=== PATIENT | female | born 1985 | race African-American/Black ===

== ENCOUNTER 2016-12-01 11:39 | Emergency (ER) | payer OTHER ==
[~2016-12-01] VITALS: Ht 170.2 cm; Wt 73.0 kg
[2016-12-01 11:42] VITALS: BP 135/97; PULSE 76; RESP 16; TEMP 99.8; O2SAT 100
--- NOTE | 2016-12-01 12:04 | PD ---
HPI Chief Complaint: Cold / Flu Symptoms Time Seen by Provider: 12:04 Travel History International Travel<30 days: No Contact w/Intl Traveler<30days: No Traveled to known affect area: No History of Present Illness HPI 31-year-old Afro-Indian female presents the emergency Department with fever, chills, bodyaches, and positive exposure to flu from roommate. Her roommate was diagnosed last evening. Patient denies productive cough, nausea or vomiting. She is worse today than she was yesterday. This is day 3 of her illness. She has no known drug allergies. [facility] Past Medical History Medical History: Denies Significant Hx Diminished Hearing: No Immunizations Current: Yes Tetanus Vaccination: < 5 Years Influenza Vaccination: No ?: Not LMP: NOW Past Surgical History Surgical History: No Previous Surgery Social History Alcohol Use: No Tobacco Use: Yes (OCC) Substance Use: No Allergies-Medications (Allergen,Severity, Reaction): Coded Allergies: No Known Allergies (Unverified , 12/01/16) Reported Meds & Prescriptions Reported Meds & Active Scripts Active No Active Prescriptions or Reported Medications Review of Systems Except as stated in HPI: all other systems reviewed are Neg General / Constitutional: Positive: Fever, Chills Eyes: No: Visual changes HENT: Positive: Headaches, Sore Throat, Rhinitis, Rhinorrhea, Congestion, No: Neck Stiffness, Neck Pain, Gingival Bleeding, Dental Difficulties, Ear Discharge , Earache Cardiovascular: No: Chest Pain or Discomfort Respiratory: Positive: Cough, No: Shortness of Breath, Wheezing, Sneezing Gastrointestinal: Positive: Loss of Appetite, No: Nausea, Vomiting, Diarrhea, Abdominal Pain Genitourinary: No: Dysuria Musculoskeletal: No: Pain Skin: No Rash Neurologic: No: Weakness Psychiatric: No: Depression Endocrine: No: Polydipsia Hematologic/Lymphatic: No: Easy Bruising Physical Exam Narrative GENERAL: Patient appears ill but not septic. SKIN: Warm and dry. Normal color. Normal turgor. HEAD: Atraumatic. Normocephalic. EYES: Pupils equal and round. No scleral icterus. No injection or drainage. ENT: No nasal bleeding and clear discharge. Mucous membranes pink and moist. Meacham clear. Airway is patent. TMs are normal bilaterally. NECK: Trachea midline. Supple nontender. CARDIOVASCULAR: Regular rate and rhythm. RESPIRATORY: No accessory muscle use. Clear to auscultation. Breath sounds equal bilaterally. MUSCULOSKELETAL: Extremities without clubbing, cyanosis, or edema. No obvious deformities. NEUROLOGICAL: Awake and alert. No obvious cranial nerve deficits. Motor grossly within normal limits. Five out of 5 muscle strength in the arms and legs. Normal speech. PSYCHIATRIC: Appropriate mood and affect; insight and judgment normal. Data Data Last Documented VS Vital Signs Date Time Temp Pulse Resp B/P Pulse Ox O2 Delivery O2 Flow Rate FiO2 12/01/16 11:52 100 Room Air 12/01/16 11:42 99.8 76 16 135/97 Orders Oseltamivir (Tamiflu) (12/01/16 12:15) [facility] Medical Decision Making Medical Screen Exam Complete: Yes Emergency Medical Condition: Yes Differential Diagnosis Fever. Upper respiratory infection. Influenza. Narrative Course Due to the patient's positive exposure to go ahead and treat her for influenza. Patient received first dose of Tamiflu 75 mg by mouth. Patient will continue Tamiflu twice a day 5 days. Patient should take Tylenol and ibuprofen and rest as needed for the next several days. Work note is given. Patient follow up with symptoms worsen in the next several days. Diagnosis Primary Impression: Influenza Referrals: [facility] Patient Instructions: General Instructions, H1N1 Influenza (ED) Departure Forms: Work Release Enter return to work date: December 01, 2016 Special Instructions: Patient has influenza. She should not work until she is fever free for 24 hours. Additional Instructions: Due to the patient's positive exposure to go ahead and treat her for influenza. Patient received first dose of Tamiflu 75 mg by mouth. Patient will continue Tamiflu twice a day 5 days. Patient should take Tylenol and ibuprofen and rest as needed for the next several days. Work note is given. Patient follow up with symptoms worsen in the next several days. Med/Other Pt SpecificInfo: Prescription(s) given Scripts No Active Prescriptions or Reported Meds Disposition: 01 DISCHARGE HOME Condition: Stable Marlon Angel December 01, 2016 12:04
[2016-12-01] MEDS ORDERED: OSELTAMIVIR PHOSPHATE 75 MG CAP PO ONE (12:15)
[2016-12-01] MEDS ORDERED: OSEL75 PO (12:21)
== END 2016-12-01 12:50 | disposition home or self-care (01) ==
LOC: PHEFT 11:39
DX: J11.1 Influenza due to unidentified influenza virus with other respiratory manifestations (principal)
CPT/HCPCS: 99283

== ENCOUNTER 2017-11-27 19:27 | Observation (INO) | payer OTHER ==
[~2017-11-27] VITALS: Ht 170.2 cm; Wt 75.4 kg
[~2017-11-27 19:27] MED LIST: OSEL75 PO
[2017-11-27 19:29] VITALS: BP 184/104; PULSE 80; RESP 16; TEMP 97.3; O2SAT 100
[2017-11-27 19:47] VITALS: BP 157/98; PULSE 77; RESP 18; O2SAT 100
[2017-11-27] MEDS ORDERED: SODIUM CHLORIDE 0.9% FLUSH 10 ML FLUSH IVF PRN (20:30)
[2017-11-27 20:47] VITALS: O2SAT 99
--- NOTE | 2017-11-27 20:52 | RADRPT ---
EXAM DATE/TIME: 11/27/2017 20:31 [facility] COMPARISON: No previous studies available for comparison. INDICATIONS : Palpitations. MEDICAL HISTORY : None. SURGICAL HISTORY : None. ENCOUNTER: Initial ACUITY: 2 days PAIN SCORE: 0/10 LOCATION: Bilateral chest FINDINGS: A single view of the chest demonstrates the lungs to be symmetrically aerated without evidence of mas s, infiltrate or effusion. The cardiomediastinal contours are unremarkable. Osseous structures are intact. CONCLUSION: No acute disease. Kj Valverde MD on November 27, 2017 at 20:50 Board Certified Radiologist. This report was verified electronically.
[2017-11-27 20:55] LABS: AUTOMATED NEUTROPHIL # 4.7 TH/MM3 (1.8-7.7); BASOPHIL # 0.1 TH/MM3 (0-0.2); BASOPHIL % 1.1 % (0.0-2.0); EOSINOPHIL # 0.3 TH/MM3 (0-0.4); EOSINOPHIL % 3.8 % (0.0-4.0); HEMATOCRIT 44.2 % (35.0-46.0); HEMOGLOBIN 14.7 GM/DL (11.6-15.3); LYMPHOCYTE # 2.3 TH/MM3 (1.0-4.8); MEAN CELL VOLUME 83.2 FL (80.0-100.0); MEAN CORPUSCULAR HEMOGLOBIN 27.7 PG (27.0-34.0); MEAN CORPUSCULAR HGB CONC 33.3 % (32.0-36.0); MEAN PLATELET VOLUME 8.3 FL (7.0-11.0); MONO % 5.1 % (0.0-8.0); MONOCYTE # 0.4 TH/MM3 (0-0.9); PLATELET COUNT 277 TH/MM3 (150-450); RED BLOOD COUNT 5.32 MIL/MM3 (4.00-5.30); RED CELL DISTRIBUTION WIDTH 13.2 % (11.6-17.2); WHITE BLOOD COUNT 7.8 TH/MM3 (4.0-11.0)
--- NOTE | 2017-11-27 20:55 | PD ---
HPI Chief Complaint: Dizziness Time Seen by Provider: 20:23 Travel History International Travel<30 days: No Contact w/Intl Traveler<30days: No Traveled to known affect area: No History of Present Illness HPI 32-year-old female presents to the emergency department for complaint of dizziness noted upon awakening yesterday morning with associated droopiness of her right eyelid. Patient denies any trauma or injury. Patient has no significant past medical history denies history of diabetes thyroid disease or hypertension. Patient's had mild headache but not sudden onset thunderclap or worst ever. Patient states she has no visual disturbance. Patient has no loss of vision and no decreased vision or peripheral vision loss. Patient does note at times double vision affecting only the right eye. Patient has had dizziness in the past but states this is a new dizziness feels off balance but has not had any focal upper or lower extremity numbness tingling or weakness or ataxia of gait. No altered mentation. No difficulty swallowing or speech. No facial droop. Due to persistent symptoms decided to come to the emergency room for evaluation. Patient takes no prescription medications and does not take contraceptives. Patient does not smoke cigarettes. Does have family history of hypertension. Patient denies pain, has had no recent febrile illness or respiratory illness. Patient denies any weakness. PFSH Past Medical History Medical History: Denies Significant Hx Diminished Hearing: No Immunizations Current: Yes Tetanus Vaccination: Unknown Influenza Vaccination: No ?: Not LMP: 10/13/17 Past Surgical History Surgical History: No Previous Surgery Social History Alcohol Use: No Tobacco Use: Yes (OCC) Substance Use: No Allergies-Medications (Allergen,Severity, Reaction): Coded Allergies: No Known Allergies (Unverified , 12/01/16) Reported Meds & Prescriptions Reported Meds & Active Scripts Active No Active Prescriptions or Reported Medications Review of Systems Except as stated in HPI: all other systems reviewed are Neg General / Constitutional: No: Fever, Chills Eyes: Positive: Diploplia, No: Blurred Vision, Photophobia, Foreign Body Sensation, Visual changes HENT: Positive: Lightheadedness, No: Headaches, Vertigo, Congestion, Neck Pain Cardiovascular: No: Chest Pain or Discomfort, Palpitations, Diaphoresis, Syncope, Dyspnea on exertion Respiratory: No: Cough, Shortness of Breath Gastrointestinal: No: Nausea, Vomiting, Abdominal Pain Genitourinary: No: Dysuria, Flank Pain Musculoskeletal: No: Myalgias, Arthralgias Skin: No Rash Neurologic: Positive: Dizziness, No: Weakness, Syncope, Focal Abnormalities, Coordination Problem, Ataxia, Headache, Change in Mentation, Slurred Speech, Paresthesia, Sensory Disturbance Psychiatric: No: Anxiety Endocrine: No: Heat Intolerance, Cold Intolerance Hematologic/Lymphatic: No: Easy Bruising Physical Exam Narrative GENERAL: Well-developed well-nourished female no acute distress no respiratory distress; GCS 15 SKIN: Warm and dry. HEAD: Atraumatic. Normocephalic. EYES: Pupils equal and round and reactive to light. No scleral icterus. No injection or drainage. Extraocular muscles intact. Mild right upper lid drooping. ENT: No nasal bleeding or discharge. Mucous membranes pink and moist. NECK: Trachea midline. No JVD. CARDIOVASCULAR: Regular rate and rhythm. RESPIRATORY: No accessory muscle use. Clear to auscultation. Breath sounds equal bilaterally. GASTROINTESTINAL: Abdomen soft, non-tender, nondistended. Hepatic and splenic margins not palpable. MUSCULOSKELETAL: Extremities without clubbing, cyanosis, or edema. No obvious deformities. NEUROLOGICAL: Awake and alert. No obvious cranial nerve deficits; no facial droop mild right upper lid blepharoptosis. Motor grossly within normal limits. Five out of 5 muscle strength in the arms and legs. No limb ataxia. No pronator drift. DTRs 2+ and equal bilateral upper extremities and lower extremities. No clonus. Sensory exam intact as tested. Normal speech. PSYCHIATRIC: Appropriate mood and affect; insight and judgment normal. Data Data Last Documented VS Vital Signs Date Time Temp Pulse Resp B/P (MAP) Pulse Ox O2 Delivery O2 Flow Rate FiO2 11/28/17 00:53 70 18 133/74 (93) 99 Room Air 11/27/17 19:29 97.3 Orders Orders Electrocardiogram (11/27/17 20:23) Complete Blood Count With Diff (11/27/17 20:23) Comprehensive Metabolic Panel (11/27/17 20:23) Magnesium (Mg) (11/27/17 20:23) Ckmb (Isoenzyme) Profile (11/27/17 20:23) Troponin I (11/27/17 20:23) Act Partial Throm Time (Ptt) (11/27/17 20:23) Prothrombin Time / Inr (Pt) (11/27/17 20:23) Urinalysis - C+S If Indicated (11/27/17 20:23) Chest, Single Ap (11/27/17 20:23) Ct Brain W/O Iv Contrast(Rout) (11/27/17 20:23) Ecg Monitoring (11/27/17 20:23) Iv Access Insert/Monitor (11/27/17 20:23) Oximetry (11/27/17 20:23) Sodium Chloride 0.9% Flush (Ns Flush) (11/27/17 20:30) Ed Urine Pregnancytest Poc (11/27/17 20:23) Thyroid Stimulating Hormone (11/27/17 21:07) CKMB (11/27/17 20:27) CKMB% (11/27/17 20:27) Westergren Sedimentation Rate (11/27/17 23:11) C-Reactive Protein (Crp) (11/27/17 23:11) Mra Carotids W Contrast (11/28/17 ) Mri Brain W/O Contrast (11/28/17 ) Mra Brain W/O Contrast (Cow) (11/28/17 ) Gadodiamide Pf Inj (Omniscan Pf Inj) (11/28/17 00:51) Admit Order (Ed Use Only) (11/28/17 ) Masseur/Masseuse / Telemetry ROLDAN.Q8H (11/28/17 02:16) Activity Oob With Assistance (11/28/17 02:16) Notify Dr: Other (11/28/17 02:16) Consult Neurology (11/28/17 ) Place In Observation (11/28/17 ) Vital Signs (Adult) Q4H (11/28/17 02:16) Activity Oob Ad Rachel (11/28/17 02:16) Intake + Output ROLDAN.QSHIFT (11/28/17 02:16) Diet Regular Basic (11/28/17 Breakfast) Sodium Chloride 0.9% Flush (Ns Flush) (11/28/17 02:30) Sodium Chloride 0.9% Flush (Ns Flush) (11/28/17 09:00) Ondansetron Inj (Zofran Inj) (11/28/17 02:30) Comprehensive Metabolic Panel (11/29/17 06:00) Complete Blood Count With Diff (11/29/17 06:00) Scd Bilateral/Knee High ROLDAN.BID (11/28/17 02:16) Polo Bilateral/Knee High ROLDAN.QSHIFT (11/28/17 02:17) Acetaminophen (Tylenol) (11/28/17 02:30) Acetamin-Hydrocod 325-5 Mg (Davey 5-325 (11/28/17 02:30) Acetamin-Hydrocod 325-10 Mg (Davey 10-32 (11/28/17 02:30) Docusate Sodium-Senna (Martha-Colace) (11/28/17 09:00) Magnesium Hydroxide Liq (Milk Of Magnesi (11/28/17 02:30) Sennosides (Senokot) (11/28/17 02:30) Bisacodyl Supp (Dulcolax Supp) (11/28/17 02:30) Lactulose Liq (Lactulose Liq) (11/28/17 02:30) Labs Laboratory Tests Test 11/27/17 20:27 11/27/17 21:12 11/27/17 21:25 11/27/17 23:21 White Blood Count 7.8 TH/MM3 Red Blood Count 5.32 MIL/MM3 Hemoglobin 14.7 GM/DL Hematocrit 44.2 % Mean Corpuscular Volume 83.2 FL Mean Corpuscular Hemoglobin 27.7 PG Mean Corpuscular Hemoglobin Concent 33.3 % Red Cell Distribution Width 13.2 % Platelet Count 277 TH/MM3 Mean Platelet Volume 8.3 FL Neutrophils (%) (Auto) 60.0 % Lymphocytes (%) (Auto) 30.0 % Monocytes (%) (Auto) 5.1 % Eosinophils (%) (Auto) 3.8 % Basophils (%) (Auto) 1.1 % Neutrophils # (Auto) 4.7 TH/MM3 Lymphocytes # (Auto) 2.3 TH/MM3 Monocytes # (Auto) 0.4 TH/MM3 Eosinophils # (Auto) 0.3 TH/MM3 Basophils # (Auto) 0.1 TH/MM3 CBC Comment DIFF FINAL Differential Comment Prothrombin Time 10.0 SEC Prothromb Time International Ratio 1.0 RATIO Activated Partial Thromboplast Time 30.6 SEC Blood Urea Nitrogen 8 MG/DL Creatinine 0.67 MG/DL Random Glucose 89 MG/DL Total Protein 7.6 GM/DL Albumin 3.5 GM/DL Calcium Level 8.9 MG/DL Magnesium Level 2.0 MG/DL Alkaline Phosphatase 80 U/L Aspartate Amino Transf (AST/SGOT) 17 U/L Alanine Aminotransferase (ALT/SGPT) 17 U/L Total Bilirubin 0.3 MG/DL Sodium Level 137 MEQ/L Potassium Level 3.4 MEQ/L Chloride Level 107 MEQ/L Carbon Dioxide Level 25.0 MEQ/L Anion Gap 5 MEQ/L Estimat Glomerular Filtration Rate 125 ML/MIN Total Creatine Kinase 147 U/L Creatine Kinase MB LESS THAN 0.5 NG/ML Troponin I LESS THAN 0.02 NG/ML Thyroid Stimulating Hormone 3rd Gen 2.460 uIU/ML Urine Color YELLOW Urine Turbidity CLEAR Urine pH 6.0 Urine Specific [place] LESS/EQUAL 1.005 Urine Protein NEG mg/dL Urine Glucose (UA) NEG mg/dL Urine Ketones NEG mg/dL Urine Occult Blood NEG Urine Nitrite NEG Urine Bilirubin NEG Urine Urobilinogen 0.2 MG/DL Urine Leukocyte Esterase NEG Urine WBC 0-2 /hpf Urine Squamous Epithelial Cells 0-5 /hpf Microscopic Urinalysis Comment CULT NOT INDICATED Erythrocyte Sedimentation Rate 1 mm/hr C-Reactive Protein 0.86 MG/DL [facility] Medical Decision Making Medical Screen Exam Complete: Yes Emergency Medical Condition: Yes Medical Record Reviewed: Yes Interpretation(s) EKG: Normal sinus rhythm rate 70 normal axis and intervals no acute ST elevation injury pattern or ectopy noted poc HCG: negative CBC & BMP Diagram 11/27/17 20:27 Total Protein 7.6, Albumin 3.5, Calcium Level 8.9, Magnesium Level 2.0, Alkaline Phosphatase 80, Aspartate Amino Transf (AST/SGOT) 17, Alanine Aminotransferase (ALT/SGPT) 17, Total Bilirubin 0.3 Last Impressions Neck Magnetic Resonance Angiography 11/28/17 0000 Signed Impressions: Service Date/Time: Tuesday, November 28, 2017 00:17 - CONCLUSION: Normal examination. Lazaro Gonzalez MD Head Magnetic Resonance Angiography 11/28/17 0000 Signed Impressions: Service Date/Time: Tuesday, November 28, 2017 00:17 - CONCLUSION: Normal examination. Lazaro Gonzalez MD Brain MRI 11/28/17 0000 Signed Impressions: Service Date/Time: Tuesday, November 28, 2017 00:17 - CONCLUSION: Normal examination. Lazaro Gonzalez MD Head CT 11/27/172022 Signed Impressions: Service Date/Time: Monday, November 27, 2017 22:18 - CONCLUSION: 1. No acute intracranial abnormalities. Kj Valverde MD Chest X-Ray 11/27/172022 Signed Impressions: Service Date/Time: Monday, November 27, 2017 20:31 - CONCLUSION: No acute disease. Kj Valverde MD Vital Signs Date Time Temp Pulse Resp B/P (MAP) Pulse Ox O2 Delivery O2 Flow Rate FiO2 11/28/17 00:53 70 18 133/74 (93) 99 Room Air 11/27/17 22:35 74 18 164/92 (116) 99 Room Air 11/27/17 21:15 70 18 163/95 (117) 100 Room Air 11/27/17 20:47 99 11/27/17 19:47 Room Air 11/27/17 19:47 77 18 157/98 (117) 100 Room Air 11/27/17 19:29 97.3 80 16 184/104 (130) 100 TSH: 2.460, wnl c-rp: 0.86, mildly elevated esr: 1, not elevated Differential Diagnosis ptosis, blepharoptosis, 3rd nn palsy, cva, tia, atypical morejon's, mass, thyroid dysfunction, trauma, MS, cerebral aneurysm, also to consider myasthenia gravis, unlikely Ida's Narrative Course Patient placed on engine monitor with continuous pulse oximetry IV access obtained specimens collected and sent for resulting EKG ordered which is sinus rhythm without ectopy Lab values grossly in normal range CT brain noncontrast without abnormality Patient's case discussed with on-call neurology recommends MRI of the brain without contrast MRA of the brain without contrast and MRA of the neck with contrast; we will see in consultation in the a.m. unless abnormality identified on imaging Imaging studies are found to be normal without abnormality Patient informed of lab results imaging results and plan for observation Patient's case discussed with on-call medicine for observation Physician Communication Physician Communication discussed with Dr Brewer ---MRI MRA brain MRA neck; discussed with [facility] MD Dr Lancaster Diagnosis Primary Impression: Dizziness Additional Impression: Diplopia Admitting Information Admitting Physician Requests: Observation Scripts No Active Prescriptions or Reported Meds Lou Manuel MD November 27, 2017 20:55
[2017-11-27 21:15] VITALS: BP 163/95; PULSE 70; RESP 18; O2SAT 100
[2017-11-27 21:47] LABS: BILIRUBIN, URINE NEG (NEG); BLOOD, URINE NEG (NEG); GLUCOSE,URINE NEG (NEG); KETONE, URINE NEG (NEG); NITRITE,URINE NEG (NEG); URINE COLOR YELLOW (YELLW/STRAW); URINE LEUKOCYTE ESTERASE NEG (NEG)
[2017-11-27 21:54] LABS: CHLORIDE 107 MEQ/L (98-107); SODIUM (NA) 137 MEQ/L (136-145)
[2017-11-27 21:57] LABS: CALCIUM 8.9 MG/DL (8.5-10.1)
[2017-11-27 21:58] LABS: ALBUMIN 3.5 GM/DL (3.4-5.0); BLOOD UREA NITROGEN 8 MG/DL (7-18); GLUCOSE,RANDOM 89 MG/DL (74-106)
[2017-11-27 22:01] LABS: ALT (GPT) 17 U/L (10-53); AST (GOT) 17 U/L (15-37); CREATININE 0.67 MG/DL (0.50-1.00); GLOMERULAR FILTRATION RATE 125 ML/MIN (>89)
[2017-11-27 22:02] LABS: TOTAL BILIRUBIN ADULT 0.3 MG/DL (0.2-1.0)
[2017-11-27 22:02] LABS: SQUAMOUS EPITHELIAL CELL URINE 0-5 /hpf (0-5); WBC, URINE 0-2 /hpf (0-5)
[2017-11-27 22:03] LABS: TOTAL PROTEIN 7.6 GM/DL (6.4-8.2)
[2017-11-27 22:04] LABS: ALKALINE PHOSPHATASE 80 U/L (45-117)
[2017-11-27 22:06] LABS: TROPONIN I LESS THAN 0.02 NG/ML (0.02-0.05)
[2017-11-27 22:35] VITALS: BP 164/92; PULSE 74; RESP 18; O2SAT 99
--- NOTE | 2017-11-27 22:46 | RADRPT ---
EXAM DATE/TIME: 11/27/2017 22:18 [facility] COMPARISON: No previous studies available for comparison. INDICATIONS : Dizziness. RADIATION DOSE: 49.63 CTDIvol (mGy) MEDICAL HISTORY : None SURGICAL HISTORY : None. ENCOUNTER: Initial ACUITY: 1 day PAIN SCALE: 0/10 LOCATION: cranial TECHNIQUE: Multiple contiguous axial images were obtained of the head. Using automated exposure control and adj ustment of the mA and/or kV according to patient size, radiation dose was kept as low as reasonably a chievable to obtain optimal diagnostic quality images. DICOM format image data is available electro nically for review and comparison. FINDINGS: CEREBRUM: The ventricles are normal for age. No evidence of midline shift, mass lesion, hemorrhage or acute in farction. No extra-axial fluid collections are seen. POSTERIOR FOSSA: The cerebellum and brainstem are intact. The 4th ventricle is midline. The cerebellopontine angle i s unremarkable. EXTRACRANIAL: The visualized portion of the orbits is intact. SKULL: The calvaria is intact. No evidence of skull fracture. CONCLUSION: 1. No acute intracranial abnormalities. Kj Valverde MD on November 27, 2017 at 22:43 Board Certified Radiologist. This report was verified electronically.
[2017-11-28] VITALS (8 sets, daily range): BP systolic 133–154; BP diastolic 74–97; PULSE 66–81; RESP 17–20; TEMP 97.8–99.3; O2SAT 98–100
--- NOTE | 2017-11-28 00:49 | RADRPT ---
EXAM DATE/TIME: 11/28/2017 00:17 [facility] COMPARISON: No previous studies available for comparison. INDICATIONS : Dizziness. Double vision with right eyelid drooping. MEDICAL HISTORY : None. SURGICAL HISTORY : None. ENCOUNTER: Initial ACUITY: 2 day PAIN SCORE: 0/10 LOCATION: cranial TECHNIQUE: Multiplanar, multisequence MRI of the brain was performed without contrast. FINDINGS: CEREBRUM: The ventricles are normal for age. No evidence of midline shift, mass lesion, hemorrhage or acute in farction. No extraaxial fluid collections are seen. The pituitary gland and suprasellar cistern are normal in configuration. WHITE MATTER: No significant signal abnormalities are seen in the white matter. POSTERIOR FOSSA: The cerebellum and brainstem are intact. The 4th ventricle is midline. The cerebellopontine angle is unremarkable. The cerebellar tonsils are normal in position. DIFFUSION IMAGING: No focal areas of restricted diffusion are seen. No evidence of acute infarction. EXTRACRANIAL: The visualized portions of the orbits and paranasal sinuses are unremarkable. CONCLUSION: Normal examination. Lazaro Gonzalez MD on November 28, 2017 at 0:44 Board Certified Radiologist. This report was verified electronically.
--- NOTE | 2017-11-28 00:50 | RADRPT ---
EXAM DATE/TIME: 11/28/2017 00:17 [facility] COMPARISON: No previous studies available for comparison. INDICATIONS : Dizziness. Double vision with right eyelid drooping. MEDICAL HISTORY : None. SURGICAL HISTORY : None. ENCOUNTER: Initial ACUITY: 2 day PAIN SCORE: 0/10 LOCATION: cranial Please note a normal MRA of the brain does not entirely exclude the possibility of a small aneurysm, nor the possibility of distal intracranial vessel disease. TECHNIQUE: 3D time of flight MRA was performed. Source images, multiplanar STS MIP, and 3D volume MIP reconstru ctions were reviewed. FINDINGS: There is excellent visualization of the major intracranial arteries out to the second-order branch ve ssels. There is no evidence for aneurysm, vessel truncation or stenosis, and no evidence for vascula r malformation. CONCLUSION: Normal examination. Lazaro Gonzalez MD on November 28, 2017 at 0:47 Board Certified Radiologist. This report was verified electronically.
[2017-11-28] MEDS ORDERED: GADODIAMIDE PF 287 MG/ML 20 ML VIAL (for RAD MRI) IVCONTRAST ONE ×2 (00:51→16:50)
--- NOTE | 2017-11-28 01:13 | RADRPT ---
EXAM DATE/TIME: 11/28/2017 00:17 [facility] COMPARISON: No previous studies available for comparison. INDICATIONS : Dizziness. Double vision with right eyelid drooping. CONTRAST: 20 cc Omniscan (gadodiamide) IV MEDICAL HISTORY : None. SURGICAL HISTORY : None. ENCOUNTER: Initial ACUITY: 2 day PAIN SCORE: 0/10 LOCATION: cranial Percent stenosis is calculated using the diameter of the stenotic region over the diameter of the nor mal distal internal carotid artery. TECHNIQUE: Bolus infused MRA of the extracranial circulation was performed using a neurovascular coil. Post pro cessing was performed including rotating subvolume maximum intensity projections of each carotid lucía ry, rotating full volume maximum intensity projections of both carotid arteries, sagittal and coronal sliding thin slab reformations of each carotid artery, and left oblique sliding thin slab reformatio n through the aortic arch to include the origin of the arch branch vessels. FINDINGS: AORTIC ARCH: There is a three vessel origin of the great vessels from the aorta. No evidence of ostial narrowing. RIGHT CAROTID: The common carotid artery is intact. The carotid bulb has a normal configuration without ulceration or narrowing. The internal carotid artery lumen is smooth without stenosis. The external carotid ar haraln is intact. LEFT CAROTID: The common carotid artery is intact. The carotid bulb has a normal configuration without ulceration or narrowing. The internal carotid artery lumen is smooth without stenosis. The external carotid ar harlan is intact. VERTEBRALS: The vertebral arteries have a symmetric diameter. No stenotic lesions are seen. CONCLUSION: Normal examination. Lazaro Gonzalez MD on November 28, 2017 at 1:11 Board Certified Radiologist. This report was verified electronically.
[2017-11-28] MEDS ORDERED: ACETAMINOPHEN 325 MG TAB PO PRN (02:30)
[2017-11-28] MEDS ORDERED: BISACODYL 10 MG SUPP RECTAL PRN (02:30)
[2017-11-28] MEDS ORDERED: MAGNESIUM HYDROXIDE SUSP 30 ML CUP PO PRN (02:30)
[2017-11-28] MEDS ORDERED: LACTULOSE SYRUP 20 GM/30 ML CUP PO PRN (02:30)
[2017-11-28] MEDS ORDERED: SENNOSIDES 8.6 MG TAB PO PRN (02:30)
[2017-11-28] MEDS ORDERED: ACETAMINOPHEN/HYDROcodone 325 MG/5 MG TAB PO PRN (02:30)
[2017-11-28] MEDS ORDERED: SODIUM CHLORIDE 0.9% FLUSH 10 ML FLUSH IV FLUSH PRN (02:30)
[2017-11-28] MEDS ORDERED: ACETAMINOPHEN/HYDROcodone 325 MG/10 MG TAB PO PRN (02:30)
[2017-11-28] MEDS ORDERED: ONDANSETRON HCL 4 MG/2 ML VIAL IVP PRN (02:30)
--- NOTE | 2017-11-28 07:24 | HHI.HP ---
[facility] Service [facility] Primary Care Physician No Primary Care Physician Admission Diagnosis dizziness w/ diplopia Diagnoses: (1) Acquired blepharoptosis of right eyelid Travel History International Travel<30 Days: No Contact w/Intl Traveler <30 Da: No Traveled to Known Affected Are: No History of Present Illness 32 year old AA female with no significant medical history presented to the ER with right eyelid drooping. She reports on the morning of 11/26 she woke up and noticed her right upper lid was drooping and if she didn't tilt her head up she would have double vision out of that eye. The amount of drooping doesn't fluctuate throughout the day. She denies any trauma, recent illness, vaccinations, insect bites, travel, or injury. She denies headache, loss of vision, paresthesias, motor weakness, slurred speech, gait abnormalities, dysphagia, or difficulty thinking. She states she was dizzy for a couple hours about a month or two ago but it resolved spontaneously. Otherwise she has never had similar symptoms in the past. Her mother was scared she was having a stroke prompting her to seek medical attention. When inquired, the patient does endorse some dry eyes the past month which she has been using lubricating eye drops for. She denies dry mouth, rash, or fatigue. She isn't currently sexually active but has been in the past with women. She denies history of STDs. She was imprisoned years ago at which time she was treated for exposure to TB but states she never had active TB. She denies any personal or family history of lupus. She does not wear contacts. Review of Systems Constitutional: COMPLAINS OF: Dizziness, DENIES: Fatigue, Fever, Chills Eyes: COMPLAINS OF: Diplopia, DENIES: Blurred vision, Eye inflammation, Eye pain, Vision loss, Photosensitivity Ears, nose, mouth, throat: DENIES: Throat pain, Running Nose, Sinus Pain Respiratory: DENIES: Cough, Wheezing, Shortness of breath Cardiovascular: DENIES: Chest pain, Palpitations, Syncope Gastrointestinal: DENIES: Abdominal pain, Black stools, Bloody stools, Diarrhea , Nausea, Vomiting Genitourinary: DENIES: Dysuria Musculoskeletal: DENIES: Joint pain, Muscle aches Integumentary: DENIES: Rash Hematologic/lymphatic: DENIES: Bruising Neurologic: DENIES: Headache, Localized weakness, Paresthesias, Seizures Psychiatric: DENIES: Anxiety Past Family Social History Past Medical History Treated for exposure to TB when in longterm years ago Past Surgical History None Reported Medications No Active Prescriptions or Reported Medications Allergies: Coded Allergies: No Known Allergies (Unverified , 12/01/16) Active Ordered Medications Acetaminophen (Tylenol) 650 mg Q6H PRN PO; Start 11/28/17 at 02:30 Acetaminophen/ Hydrocodone Bitart ([place] 5-325 Mg) 1 tab Q4H PRN PO; Start 11/28/17 at 02:30 Acetaminophen/ Hydrocodone Bitart ([place] 10-325 Mg) 1 tab Q4H PRN PO; Start 11/28/17 at 02:30 Bisacodyl (Dulcolax Supp) 10 mg DAILY PRN RECTAL; Start 11/28/17 at 02:30 Gadodiamide (Omniscan Pf Inj) 20 ml STK-MED ONCE IVCONTRAST Last administered on 11/28/17at 00:51; Admin Dose 20 ML; Start 11/28/17 at 00:51; Stop 11/28/17 at 00: 52; Status DC Lactulose (Lactulose Liq) 30 ml DAILY PRN PO; Start 11/28/17 at 02:30 Magnesium Hydroxide (Milk Of Magnesia Liq) 30 ml Q12H PRN PO; Start 11/28/17 at 02:30 Ondansetron HCl (Zofran Inj) 4 mg Q6H PRN IVP; Start 11/28/17 at 02:30 Senna/Docusate Sodium ([place]artha-Colace) 1 tab BID PO; Start 11/28/17 at 09:00 Sennosides (Senokot) 17.2 mg Q12H PRN PO; Start 11/28/17 at 02:30 Sodium Chloride (NS Flush) 2 ml BID IV FLUSH; Start 11/28/17 at 09:00 Sodium Chloride (NS Flush) 2 ml UNSCH PRN IV FLUSH; Start 11/28/17 at 02:30 Sodium Chloride (NS Flush) 2 ml UNSCH PRN IVF; Start 11/27/17 at 20:30 Family History Hypertension Social History Lives with mother EtOH: socially Tobacco: denies Illicit drugs: occasional marijuana, never IVDU Physical Exam Vital Signs Vital Signs Date Time Temp Pulse Resp B/P (MAP) Pulse Ox O2 Delivery O2 Flow Rate FiO2 11/28/17 05:33 68 18 151/93 (112) 99 Room Air 11/28/17 03:00 72 18 145/78 (100) 99 Room Air 11/28/17 00:53 70 18 133/74 (93) 99 Room Air 11/27/17 22:35 74 18 164/92 (116) 99 Room Air 11/27/17 21:15 70 18 163/95 (117) 100 Room Air 11/27/17 20:47 99 11/27/17 19:47 Room Air 11/27/17 19:47 77 18 157/98 (117) 100 Room Air 11/27/17 19:29 97.3 80 16 184/104 (130) 100 Physical Exam GENERAL: Well-nourished, well-developed female laying comfortably in bed in no apparent distress. Has her chin up to look through lowered palpebral fissure. SKIN: No rashes, ecchymoses or lesions. Cool and dry. Multiple tattoos over extremities. HEENT: Atraumatic. Normocephalic. No temporal or scalp tenderness. Pupils equal round and reactive. Extraocular motions intact. No scleral icterus. No injection or drainage. Nose without bleeding, purulent drainage or septal hematoma. Throat without erythema, tonsillar hypertrophy or exudate. Uvula midline. Airway patent. NECK: Trachea midline. No JVD or lymphadenopathy. Supple, nontender, no meningeal signs. CARDIOVASCULAR: Regular rate and rhythm without murmurs, gallops, or rubs. RESPIRATORY: Clear to auscultation. Breath sounds equal bilaterally. No wheezes , rales, or rhonchi. GASTROINTESTINAL: Abdomen soft, non-tender, nondistended. No hepato-splenomegaly , or palpable masses. No guarding. MUSCULOSKELETAL: Extremities without clubbing, cyanosis, or edema. No joint tenderness, effusion, or edema noted. No calf tenderness. Negative Homans sign bilaterally. NEUROLOGICAL: Awake and alert. Cranial nerves II through XII intact. R upper eyelid ptosis. Smile appears symmetric though smile creases slightly different ( 2 on right, 1 on left). Motor and sensory grossly within normal limits. Five out of 5 muscle strength in all muscle groups. Normal speech. Rapid alternating movements and heel-lambert testing within normal limits. No pronator drift. Laboratory Laboratory Tests Test 11/27/17 20:27 11/27/17 21:12 11/27/17 21:25 11/27/17 23:21 White Blood Count 7.8 Red Blood Count 5.32 Hemoglobin 14.7 Hematocrit 44.2 Mean Corpuscular Volume 83.2 Mean Corpuscular Hemoglobin 27.7 Mean Corpuscular Hemoglobin Concent 33.3 Red Cell Distribution Width 13.2 Platelet Count 277 Mean Platelet Volume 8.3 Neutrophils (%) (Auto) 60.0 Lymphocytes (%) (Auto) 30.0 Monocytes (%) (Auto) 5.1 Eosinophils (%) (Auto) 3.8 Basophils (%) (Auto) 1.1 Neutrophils # (Auto) 4.7 Lymphocytes # (Auto) 2.3 Monocytes # (Auto) 0.4 Eosinophils # (Auto) 0.3 Basophils # (Auto) 0.1 CBC Comment DIFF FINAL Differential Comment Prothrombin Time 10.0 Prothromb Time International Ratio 1.0 Activated Partial Thromboplast Time 30.6 Blood Urea Nitrogen 8 Creatinine 0.67 Random Glucose 89 Total Protein 7.6 Albumin 3.5 Calcium Level 8.9 Magnesium Level 2.0 Alkaline Phosphatase 80 Aspartate Amino Transf (AST/SGOT) 17 Alanine Aminotransferase (ALT/SGPT) 17 Total Bilirubin 0.3 Sodium Level 137 Potassium Level 3.4 Chloride Level 107 Carbon Dioxide Level 25.0 Anion Gap 5 Estimat Glomerular Filtration Rate 125 Total Creatine Kinase 147 Creatine Kinase MB LESS THAN 0.5 Troponin I LESS THAN 0.02 Thyroid Stimulating Hormone 3rd Gen 2.460 Urine Color YELLOW Urine Turbidity CLEAR Urine pH 6.0 Urine Specific [place] LESS/EQUAL 1.005 Urine Protein NEG Urine Glucose (UA) NEG Urine Ketones NEG Urine Occult Blood NEG Urine Nitrite NEG Urine Bilirubin NEG Urine Urobilinogen 0.2 Urine Leukocyte Esterase NEG Urine WBC 0-2 Urine Squamous Epithelial Cells 0-5 Microscopic Urinalysis Comment CULT NOT INDICATED Erythrocyte Sedimentation Rate 1 C-Reactive Protein 0.86 Result Diagram: 11/27/17202611/27/172026 Imaging Neck Magnetic Resonance Angiography 11/28/17 Signed Impressions: Service Date/Time: Tuesday, November 28, 2017 00:17 - CONCLUSION: Normal examination. Lazaro Gonzalez MD Head Magnetic Resonance Angiography 11/28/17 Signed Impressions: Service Date/Time: Tuesday, November 28, 2017 00:17 - CONCLUSION: Normal examination. Lazaro Gonzalez MD Brain MRI 11/28/17 Signed Impressions: Service Date/Time: Tuesday, November 28, 2017 00:17 - CONCLUSION: Normal examination. Lazaro Gonzalez MD Head CT 11/27/172022 Signed Impressions: Service Date/Time: Monday, November 27, 2017 22:18 - CONCLUSION: 1. No acute intracranial abnormalities. Kj Valverde MD Chest X-Ray 11/27/172022 Signed Impressions: Service Date/Time: Monday, November 27, 2017 20:31 - CONCLUSION: No acute disease. Kj Valverde MD Caprini VTE Risk Assessment Caprini VTE Risk Assessment: No/Low Risk (score <= 1) Caprini Risk Assessment Model Point Value = 1 Point Value = 2 Point Value = 3 Point Value = 5 Age 41-60 Minor surgery BMI > 25 kg/m2 Swollen legs Varicose veins or History of unexplained or recurrent spontaneous Oral contraceptives or hormone replacement Sepsis (< 1 month) Serious lung disease, including pneumonia (< 1 month) Abnormal pulmonary function Acute myocardial infarction Congestive heart failure (< 1 month) History of inflammatory bowel disease Medical patient at bed rest Age 61-74 Arthroscopic surgery Major open surgery (> 45 min) Laparoscopic surgery (> 45 min) Malignancy Confined to bed (> 72 hours) Immobilizing plaster cast Central venous access Age >= 75 History of VTE Family history of VTE Factor V Leiden Prothrombin [id number] Lupus anticoagulant Anticardiolipin antibodies Elevated serum homocysteine Heparin-induced thrombocytopenia Other congenital or acquired thrombophilia Stroke (< 1 month) Elective arthroplasty Hip, pelvis, or leg fracture Acute spinal cord injury (< 1 month) Prophylaxis Regimen Total Risk Factor Score Risk Level Prophylaxis Regimen 0-1 Low Early ambulation 2 Moderate Order ONE of the following: *Sequential Compression Device (SCD) *Heparin 5000 units SQ BID 3-4 Higher Order ONE of the following medications: *Heparin 5000 units SQ TID *Enoxaparin/Lovenox 40 mg SQ daily (WT < 150 kg, CrCl > 30 mL/min) *Enoxaparin/Lovenox 30 mg SQ daily (WT < 150 kg, CrCl > 10-29 mL/min) *Enoxaparin/Lovenox 30 mg SQ BID (WT < 150 kg, CrCl > 30 mL/min) AND/OR *Sequential Compression Device (SCD) 5 or more Highest Order ONE of the following medications: *Heparin 5000 units SQ TID (Preferred with Epidurals) *Enoxaparin/Lovenox 40 mg SQ daily (WT < 150 kg, CrCl > 30 mL/min) *Enoxaparin/Lovenox 30 mg SQ daily (WT < 150 kg, CrCl > 10-29 mL/min) *Enoxaparin/Lovenox 30 mg SQ BID (WT < 150 kg, CrCl > 30 mL/min) AND *Sequential Compression Device (SCD) Assessment and Plan Problem List: (1) Acquired blepharoptosis of right eyelid ICD Code: H02.401 - Unspecified ptosis of right eyelid Assessment and Plan 32 year old female with no known medical history presenting with R eyelid ptosis. 1. R blepharoptosis with associated diplopia - DDx: third nerve palsy, MG, Ida's, Coley's palsy - CBC, BMP, coags, U/A unremarkable - Troponin negative and EKG NSR without ST changes - All cranial studies have been negative so far including MRI, MRA, and neck MRA - TSH, ESR, CRP WNL - Check RPR and UHEY - Neuro consulted for further eval - Will need ophtho f/u FEN: - Tolerating PO - Potassium mildly low otherwise lytes WNL - Regular diet DVT prophylaxis: Low risk and ambulatory Disposition: if cleared by neuro can d/c home today w/ follow-up to ophthalmology Code Status FULL Discussed Condition With Patient and her mother Katherine Curry MD November 28, 2017 07:24
[2017-11-28] MEDS: DOCUSATE SODIUM 50 MG/SENNA 8.6 MG TAB PO SCH ×2 (09:00→20:39)
[2017-11-28] MEDS: SODIUM CHLORIDE 0.9% FLUSH 10 ML FLUSH IV FLUSH SCH ×2 (09:09→20:39)
--- NOTE | 2017-11-28 12:29 | MB ---
cc: Blu Brewer MD DATE: 11/28/2017 HISTORY OF PRESENT ILLNESS: This is a 32-year-old right-handed woman without any past medical history. She says a few months ago she felt dizzy, but otherwise has not had any trouble swallowing or seeing or double vision, and day she woke up, she had a ptosis in the right eye and some double vision whenever she looks around except if he looks downward. No trouble swallowing. No fatigue. Otherwise, has been not ill. No headache, chest pain or fevers or earaches or hearing loss, or weakness in her arms or legs. She feels dizzy, but no vertigo. REVIEW OF SYSTEMS: Denies any hypertension, diabetes, hypercholesterolemia, VA, CABG, cardiac arrhythmia; renal, hepatic or pulmonary disease; thyroid disease, lupus, ulcer, cancer, seizure, or stroke. SOCIAL HISTORY: Nonsmoker. Occasionally has a drink. Lives with her mother. 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 No insurance at this time. She occasionally smokes marijuana. She denied any drug use, however. FAMILY HISTORY: Negative for cancer, seizures or stroke. ALLERGIES: NO KNOWN DRUG ALLERGIES. MEDICATIONS: None. PAST MEDICAL HISTORY: No recent illness. PHYSICAL EXAMINATION: VITAL SIGNS: Afebrile, heart rate 66, respiration 17, blood pressure 144/95. NECK: There were no carotid or vertebral bruits. HEART: Regular rhythm. I did not detect a murmur. HEENT: There was no ocular bruit on the right. Hearing was intact to finger rub on the right. The pupils are equal. Visual saavedra are full. There is no scatoma on the right. Extraocular movements are intact. There was no nystagmus. She has got a right ptosis, which with application of cold water bottle seemed to improve initially quite a bit and then less so with time on a second trial. NEUROLOGIC: Face moves symmetrically with normal sensation, including frontalis and buccal muscles. Tongue was midline. Pharynx elevated symmetrically. Pinprick was intact throughout on the face. There was no drift. She had normal strength in upper extremities bilaterally. DTRs trace to absent throughout. Toes downgoing bilaterally. There is no clonus. Pinprick is intact throughout. She is in no apparent distress. Normal speech. She is not ataxic [id number] or [id number]. LABORATORY DATA: CBC is normal. Sedimentation rate is 1. UA is negative. Basic metabolic profile was normal. CPK, troponin, total protein, albumin, and TSH normal. CRP 0.86, normal is 0.3. Coags are normal. IMAGING STUDIES: She had an MRI of the brain, MRA [place] and MRA of the neck that were read as normal. She had a chest x-ray that was read as negative. She had a CAT scan of her brain that was read as normal. Review of the films: MRA of the [place] was normal. MRA of the carotids and vertebral system was normal. I do not see anything in the cavernous sinus. The MRI of the brain was done without contrast. No retroorbital masses are noted. IMPRESSION AND RECOMMENDATIONS: Right-sided ptosis, some double vision. I wonder if she does not have myasthenia gravis. We will try her on some Mestinon, check some blood work on her and a CT of her chest. I would recommend having ophthalmology see her and we will see if the trial of Mestinon resolves her symptoms. We will also check an MRI of the brain with contrast. MD JENNIFER Salmon/SCOTT , 12:07 PM , 12:28 PM
[2017-11-28] MEDS: SODIUM CHLOR 0.9% 1000 ML INJ 1,000 ML IV SCH (12:58)
--- NOTE | 2017-11-28 14:04 | EKG ---
Date Performed: 11/27/2017 Time Performed: 20:48:56 PTAGE: 32 years EKG: Sinus rhythm NORMAL ECG NO PREVIOUS TRACING DOCTOR: Truong Dash Interpretating Date/Time 11/28/2017 14:04:03
[2017-11-28] MEDS: PYRIDOSTIGMINE BROMIDE 60 MG TAB PO SCH ×2 (14:14→21:18)
[2017-11-28] MEDS ORDERED: cloNIDine HCL 0.1 MG TAB PO PRN (14:30)
[2017-11-28] MEDS ORDERED: LORazepam 0.5 MG TAB PO PRN (14:30)
[2017-11-28] MEDS ORDERED: hydrALAZINE HCL 25 MG TAB PO PRN (14:30)
[2017-11-28 14:43] LABS: C-REACTIVE PROTEIN 0.84 MG/DL (0.00-0.30)
[2017-11-28] MEDS ORDERED: IOHEXOL 350 MG/ML 10 ML VIAL (for RAD DIAG) IVCONTRAST ONE (17:20)
--- NOTE | 2017-11-28 18:47 | RADRPT ---
EXAM DATE/TIME: 11/28/2017 16:58 [facility] COMPARISON: MRI BRAIN W/O CONTRAST, November 28, 2017, 0:17. INDICATIONS : Diplopia. CONTRAST: 15 cc Omniscan (gadodiamide) IV MEDICAL HISTORY : None. SURGICAL HISTORY : None. ENCOUNTER: Initial ACUITY: 1 day PAIN SCORE: 0/10 LOCATION: cranial TECHNIQUE: Multiplanar, multisequence MRI of the brain was performed both prior to and following the administrat ion of paramagnetic contrast. FINDINGS: CEREBRUM: The ventricles are normal for age. No evidence of midline shift, mass lesion, hemorrhage or acute in farction. No extraaxial fluid collections are seen. The pituitary gland and suprasellar cistern are normal in configuration. WHITE MATTER: No significant signal abnormalities are seen in the white matter. POSTERIOR FOSSA: The cerebellum and brainstem are intact. The 4th ventricle is midline. The cerebellopontine angle is unremarkable. The cerebellar tonsils are normal in position. DIFFUSION IMAGING: No focal areas of restricted diffusion are seen. No evidence of acute infarction. EXTRACRANIAL: The visualized portions of the orbits and paranasal sinuses are unremarkable. POST-CONTRAST: No abnormal areas of parenchymal or dural enhancement. No evidence of blood-brain barrier breakdown. CONCLUSION: Contrast enhanced brain MRI within normal limits. Sven Vieira MD on November 28, 2017 at 18:42 Board Certified Radiologist. This report was verified electronically.
--- NOTE | 2017-11-28 18:50 | RADRPT ---
EXAM DATE/TIME: 11/28/2017 17:08 [facility] COMPARISON: MRI BRAIN W/O CONTRAST, November 28, 2017, 0:17. MRI BRAIN W & W/O CONTRAST, November 28, 2017, 16:58. INDICATIONS : Right sided ptosis. Possible myasthenia gravis. Evaluate for thymoma. IV CONTRAST: 50 cc Omnipaque 350 (iohexol) IV RADIATION DOSE: 6.25 CTDIvol (mGy) MEDICAL HISTORY : Hypertension. SURGICAL HISTORY : None. ENCOUNTER: Initial ACUITY: 2 days PAIN SCALE: 0/10 LOCATION: chest TECHNIQUE: Volumetric scanning of the chest was performed. Using automated exposure control and adjustment of t he mA and/or kV according to patient size, radiation dose was kept as low as reasonably achievable to obtain optimal diagnostic quality images. DICOM format image data is available electronically for review and comparison. Follow-up recommendations for detected pulmonary nodules are based at a minimum on nodule size and pa tient risk factors according to Fleischner Society Guidelines. FINDINGS: LUNGS: There is no consolidation or pneumothorax. No concerning pulmonary nodule is visualized. PLEURA: There is no pleural thickening or pleural effusion. MEDIASTINUM: 1.7 x 1.2 cm triangular shaped soft tissue seen in the anterior mediastinum. No discrete mass identif ied. No enlarged lymph nodes. AXILLAE: Within normal limits. No lymphadenopathy. SKELETAL: Within normal limits for patient age. MISCELLANEOUS: The visualized upper abdominal organs demonstrate no acute abnormality. CONCLUSION: Small amount of presumed residual thymus tissue in the anterior mediastinum. No discr ete mass identified. No acute findings in the chest. Sven Vieira MD on November 28, 2017 at 18:45 Board Certified Radiologist. This report was verified electronically.
[2017-11-28 18:54] LABS: RHEUMATOID FACTOR SCREEN NEGATIVE (NEGATIVE)
[2017-11-28 19:12] LABS: FREE T4 1.23 NG/DL (0.76-1.46)
[2017-11-28 19:13] LABS: FOLATE GREATER THAN 20.0 NG/ML (3.1-17.5)
[2017-11-29] VITALS: BP 144/88; PULSE 62; RESP 20; TEMP 97.6; O2SAT 98
[2017-11-29] MEDS: SODIUM CHLOR 0.9% 1000 ML INJ 1,000 ML IV SCH ×2 (04:32→14:10)
[2017-11-29] MEDS: PYRIDOSTIGMINE BROMIDE 60 MG TAB PO SCH ×2 (05:59→14:09)
[2017-11-29 08:00] VITALS: BP 137/87; PULSE 71; RESP 19; TEMP 99.1; O2SAT 100
[2017-11-29] MEDS: SODIUM CHLORIDE 0.9% FLUSH 10 ML FLUSH IV FLUSH SCH (08:19)
[2017-11-29] MEDS: DOCUSATE SODIUM 50 MG/SENNA 8.6 MG TAB PO SCH (08:20)
[2017-11-29 08:31] LABS: AUTOMATED NEUTROPHIL # 5.2 TH/MM3 (1.8-7.7); BASOPHIL % 0.5 % (0.0-2.0); EOSINOPHIL # 0.2 TH/MM3 (0-0.4); EOSINOPHIL % 2.9 % (0.0-4.0); HEMATOCRIT 40.3 % (35.0-46.0); HEMOGLOBIN 12.9 GM/DL (11.6-15.3); LYMPH % 21.5 % (9.0-44.0); LYMPHOCYTE # 1.6 TH/MM3 (1.0-4.8); MEAN CELL VOLUME 84.2 FL (80.0-100.0); MEAN CORPUSCULAR HEMOGLOBIN 26.9 PG (27.0-34.0); MEAN PLATELET VOLUME 8.4 FL (7.0-11.0); MONO % 6.7 % (0.0-8.0); MONOCYTE # 0.5 TH/MM3 (0-0.9); NEUT % 68.4 % (16.0-70.0); PLATELET COUNT 225 TH/MM3 (150-450); RED BLOOD COUNT 4.78 MIL/MM3 (4.00-5.30); RED CELL DISTRIBUTION WIDTH 12.7 % (11.6-17.2); WHITE BLOOD COUNT 7.5 TH/MM3 (4.0-11.0)
[2017-11-29 08:36] LABS: CHLORIDE 106 MEQ/L (98-107); SODIUM (NA) 137 MEQ/L (136-145)
[2017-11-29 08:40] LABS: CALCIUM 8.7 MG/DL (8.5-10.1)
[2017-11-29 08:41] LABS: ALBUMIN 3.3 GM/DL (3.4-5.0); BLOOD UREA NITROGEN 8 MG/DL (7-18); GLUCOSE,RANDOM 88 MG/DL (74-106)
[2017-11-29 08:44] LABS: ALT (GPT) 15 U/L (10-53); AST (GOT) 12 U/L (15-37); CREATININE 0.66 MG/DL (0.50-1.00); GLOMERULAR FILTRATION RATE 127 ML/MIN (>89)
[2017-11-29 08:46] LABS: TOTAL BILIRUBIN ADULT 0.6 MG/DL (0.2-1.0); TOTAL PROTEIN 7.5 GM/DL (6.4-8.2)
[2017-11-29 08:47] LABS: ALKALINE PHOSPHATASE 75 U/L (45-117)
--- NOTE | 2017-11-29 09:16 | PD.CONS ---
History of Present Illness Service Ophthalmology Consult Requested By Reason for Consult diplopia and ptosis Primary Care Physician No Primary Care Physician Diagnoses: History of Present Illness 32 year old AA female with no significant medical history presented to the ED with 3 days of right eyelid drooping and diplopia. She states the diplopia is constant, binocular, vertical and improved on right and back head tilt. The amount of right eyelid drooping doesn't fluctuate throughout the day. No blurred vision. MRI brain, MRA brain/neck all normal. No significant ocular history. Past Family Social History Allergies: Coded Allergies: No Known Allergies (Unverified , 12/01/16) Physical Exam Vital Signs Vital Signs Date Time Temp Pulse Resp B/P (MAP) Pulse Ox O2 Delivery O2 Flow Rate FiO2 11/29/17 00:00 97.6 62 20 144/88 (106) 98 11/28/17 20:00 97.8 70 20 154/89 (110) 98 11/28/17 15:01 77 11/28/17 12:00 99.3 75 18 148/97 (114) 100 11/28/17 09:19 81 Physical Exam Va cc at near OD 20/20, OS 20/20 EOM full OU, diplopia in all directions of gaze except downward and right head tilt CVF full OU Pupils 3-1 no APD OU IOP normal to palpation OU Anterior exam OD - normal eyelid, C/S W&Q, K clear, AC deep, pupil round, lens clear OS - normal eyelid, C/S W&Q, K clear, AC deep, pupil round, lens clear Laboratory Laboratory Tests Test 11/28/17 10:22 11/28/17 12:35 11/29/17 07:35 C-Reactive Protein 0.84 Total Protein 7.8 7.5 Vitamin B12 Level 495 Folate GREATER THAN 20.0 Free Thyroxine 1.23 Human Chorionic Gonadotropin, Quant LESS THAN 1 Rheumatoid Factor Screen NEGATIVE Rheumatoid Factor Titer White Blood Count 7.5 Red Blood Count 4.78 Hemoglobin 12.9 Hematocrit 40.3 Mean Corpuscular Volume 84.2 Mean Corpuscular Hemoglobin 26.9 Mean Corpuscular Hemoglobin Concent 32.0 Red Cell Distribution Width 12.7 Platelet Count 225 Mean Platelet Volume 8.4 Neutrophils (%) (Auto) 68.4 Lymphocytes (%) (Auto) 21.5 Monocytes (%) (Auto) 6.7 Eosinophils (%) (Auto) 2.9 Basophils (%) (Auto) 0.5 Neutrophils # (Auto) 5.2 Lymphocytes # (Auto) 1.6 Monocytes # (Auto) 0.5 Eosinophils # (Auto) 0.2 Basophils # (Auto) 0.0 CBC Comment DIFF FINAL Differential Comment Blood Urea Nitrogen 8 Creatinine 0.66 Random Glucose 88 Albumin 3.3 Calcium Level 8.7 Alkaline Phosphatase 75 Aspartate Amino Transf (AST/SGOT) 12 Alanine Aminotransferase (ALT/SGPT) 15 Total Bilirubin 0.6 Sodium Level 137 Potassium Level 3.5 Chloride Level 106 Carbon Dioxide Level 25.0 Anion Gap 6 Estimat Glomerular Filtration Rate 127 Result Diagram: 11/29/17 0735 11/29/17 0735 Assessment and Plan Problem List: (1) Diplopia ICD Codes: H53.2 - Diplopia Status: Acute Plan: Secondary to right inferior rectus palsy. No sign of 3rd nerve palsy or Ida's syndrome. Agree that ptosis and diplopia most likely due to Myasthenia Gravis. Patient currently getting workup and trial of Mestinon by Neurology. Asia Dong MD November 29, 2017 09:16
--- NOTE | 2017-11-29 09:48 | HHI.PR ---
Subjective Remarks Follow-up right blepharoptosis with diplopia. Patient seen and examined, sitting up in bed comfortably no apparent distress. Does complain of continued right a diplopia although has been improving since on medication. Dizziness or lightheadedness. Vital signs are stable. Labs stable today. Awaiting ordered lab work. Neurology following as well as ophthalmology. Objective Vitals Vital Signs Date Time Temp Pulse Resp B/P (MAP) Pulse Ox O2 Delivery O2 Flow Rate FiO2 11/29/17 00:00 97.6 62 20 144/88 (106) 98 11/28/17 20:00 97.8 70 20 154/89 (110) 98 11/28/17 15:01 77 11/28/17 12:00 99.3 75 18 148/97 (114) 100 I/O 11/28/17 11/28/17 11/28/17 11/29/17 11/29/17 11/29/17 07:00 15:00 23:00 07:00 15:00 23:00 Intake Total 720 ml 1522 ml Balance 720 ml 1522 ml Intake Oral 720 ml 720 ml IV Total 802 ml # Voids 5 2 Result Diagram: 11/29/17 0735 11/29/17 0735 Imaging Last Impressions Brain MRI 11/28/17 1204 Signed Impressions: Service Date/Time: Tuesday, November 28, 2017 16:58 - CONCLUSION: Contrast enhanced brain MRI within normal limits. Sven Vieira MD Neck Magnetic Resonance Angiography 11/28/17 0000 Signed Impressions: Service Date/Time: Tuesday, November 28, 2017 00:17 - CONCLUSION: Normal examination. Lazaro Gonzalez MD Head Magnetic Resonance Angiography 11/28/17 0000 Signed Impressions: Service Date/Time: Tuesday, November 28, 2017 00:17 - CONCLUSION: Normal examination. Lazaro Gonzalez MD Chest CT 11/28/17 0000 Signed Impressions: Service Date/Time: Tuesday, November 28, 2017 17:08 - CONCLUSION: Small amount of presumed residual thymus tissue in the anterior mediastinum. No discrete mass identified. No acute findings in the chest. Sven Vieira MD Head CT 11/27/172022 Signed Impressions: Service Date/Time: Monday, November 27, 2017 22:18 - CONCLUSION: 1. No acute intracranial abnormalities. Kj Valverde MD Chest X-Ray 11/27/172022 Signed Impressions: Service Date/Time: Monday, November 27, 2017 20:31 - CONCLUSION: No acute disease. Kj Valverde MD Objective Remarks GENERAL: Well-nourished, well-developed female laying comfortably in bed in no apparent distress. SKIN: No rashes, ecchymoses or lesions. Cool and dry. Multiple tattoos over extremities. HEENT: Atraumatic. Normocephalic. No temporal or scalp tenderness. Pupils equal round and reactive. Extraocular motions intact. No scleral icterus. No injection or drainage. Nose without bleeding, purulent drainage or septal hematoma. Throat without erythema, tonsillar hypertrophy or exudate. Uvula midline. Airway patent. NECK: Trachea midline. No JVD or lymphadenopathy. Supple, nontender, no meningeal signs. CARDIOVASCULAR: Regular rate and rhythm without murmurs, gallops, or rubs. RESPIRATORY: Clear to auscultation. Breath sounds equal bilaterally. No wheezes , rales, or rhonchi. GASTROINTESTINAL: Abdomen soft, non-tender, nondistended. No hepato-splenomegaly , or palpable masses. No guarding. MUSCULOSKELETAL: Extremities without clubbing, cyanosis, or edema. No joint tenderness, effusion, or edema noted. No calf tenderness. Negative Homans sign bilaterally. NEUROLOGICAL: Awake and alert. Cranial nerves II through XII intact. R upper eyelid ptosis. Smile appears symmetric. Motor and sensory grossly within normal limits. Five out of 5 muscle strength in all muscle groups. Normal speech. Rapid alternating movements and heel-lambert testing within normal limits. No pronator drift. A/P Problem List: (1) Acquired blepharoptosis of right eyelid ICD Code: H02.401 - Unspecified ptosis of right eyelid Assessment and Plan 32 year old female with no known medical history presenting with R eyelid ptosis. 1. R blepharoptosis with associated diplopia - DDx: third nerve palsy, MG, Ida's, Coley's palsy - CBC, BMP, coags, U/A unremarkable - Troponin negative and EKG NSR without ST changes - All cranial studies have been negative so far including MRI, MRA, and neck MRA - TSH, ESR, CRP WNL - RPR elevated HUEY pending. - Neuro consulted, appreciate input recommendations. - Ophthalmology consulted and appreciate input and recommendations. Will need f/ u outpatient. DVT prophylaxis: Low risk and ambulatory Kimberley Lopez November 29, 2017 09:47
[2017-11-29 12:00] VITALS: BP 130/82; PULSE 70; RESP 17; TEMP 99.4; O2SAT 99
[2017-11-29] MEDS ORDERED: PYRIDOSTIGMINE BROMIDE 60 MG TAB PO ONE (14:00)
[2017-11-29 16:00] VITALS: BP 135/85; PULSE 72; RESP 18; TEMP 99.2; O2SAT 99
[2017-11-29] MEDS ORDERED: PYRI60 PO (16:48)
--- NOTE | 2017-11-29 16:50 | HHI.DCPOC ---
Discharge Care Plan Diagnosis: (1) Dizziness (2) Diplopia (3) Acquired blepharoptosis of right eyelid Goals to Promote Your Health * To prevent worsening of your condition and complications * To maintain your health at the optimal level Directions to Meet Your Goals Take your medications as prescribed Follow your dietary instruction Follow activity as directed Keep your appointments as scheduled Take your immunizations and boosters as scheduled If your symptoms worsen call your PCP, if no PCP go to Urgent Care Center or Emergency Room Smoking is Dangerous to Your Health. Avoid second hand smoke Call the 24-hour hour crisis hotline for domestic abuse at Kimberley Lopez November 29, 2017 16:50
[2017-11-29] MEDS ORDERED: PYRIDOSTIGMINE BROMIDE 60 MG TAB PO SCH (18:00)
[2017-11-30 10:14] LABS: RPR SCREEN FOR REFLEX NON-REACTIVE (NON-REACTVE)
[2017-12-01 21:26] LABS: ALB/GLOB RATIO (SPE) 1.34 (1.39-2.23)
[2017-12-02 10:32] LABS: METHYLMALONIC ACID 0.08 nmol/mL (<=0.40)
[2017-12-03 17:52] LABS: STRIATED MUCLE AB TITER ND (<1:40)
== END 2017-11-29 18:55 | disposition home or self-care (01) ==
LOC: PHED 19:27 → PHEDA 11-28 02:18 → PHEDH 11-28 05:17 → PH3A 11-28 07:43
PROVIDERS: ADMIT Hospitalist; ATTEND Hospitalist
DX: R42 Dizziness and giddiness (principal); R51 Headache; H53.2 Diplopia; Z82.49 Family history of ischemic heart disease and other diseases of the circulatory system; F17.210 Nicotine dependence, cigarettes, uncomplicated; H02.401 Unspecified ptosis of right eyelid; Z20.1 Contact with and (suspected) exposure to tuberculosis; F12.90 Cannabis use, unspecified, uncomplicated; R00.2 Palpitations
CPT/HCPCS: 70450; 70544; 70548; 70551; 70553; 71045; 71260; 80053; 81001; 82550; 82552; 82607; 82746; 83519; 83735; 83921; 84165; 84207; 84425; 84439; 84443; 84484; 84702; 84703; 85025; 85610; 85652; 85730; 86038; 86140; 86255; 86430; 86592; 93005; 96360; 96361; 99285; A9579; G0378; J7030; Q9967